=== PATIENT | female | born 1955 | race Caucasian/White ===

== ENCOUNTER 2023-06-11 13:26 | Outpatient (REF) | payer OTHER, SELFPAY ==
[2023-06-11 19:20] LABS: Anion Gap 9.4 mmol/L (3-11); BUN 13 mg/dL (7-18); CO2 25.6 mmol/L (21.0-32.0); CREATININE 1.1 mg/dL (0.55-1.02); Calcium 9.2 mg/dL (8.5-10.1); Chloride 106 mmol/L (98-107); Estimated GFR 54.73 (mL/min/1.73m2); Glucose 130 mg/dL (74-106); Potassium 3.9 mmol/L (3.5-5.1); Sodium 141 mmol/L (136-145)
== END 2023-06-11 13:27 | disposition home or self-care (01) ==
LOC: NCHCN 13:26
PROVIDERS: PCP Internal Medicine; Visit Provider Nurse Practitioner Family
DX: R53.1 Weakness (principal)
CPT/HCPCS: 80048

== ENCOUNTER 2023-07-23 15:48 | Outpatient (REF) | payer OTHER, SELFPAY ==
[2023-07-26 18:49] LABS: 2-OH-Ethyl-Flurazepam Negative ng/mL (Cutoff: 10); 7-NH-Clonazepam 169 ng/mL (Cutoff: 10); 7-NH-Flunitrazepam Negative ng/mL (Cutoff: 10); Alpha OH-Alprazolam 20 ng/mL (Cutoff: 10); Alpha-OH Midazolam Negative ng/mL (Cutoff: 10); Alpha-OH-Triazolam Negative ng/mL (Cutoff: 10); Alprazolam Negative ng/mL (Cutoff: 10); Benzodiazepines Interpretation Positive.; Chlordiazepoxide Negative ng/mL (Cutoff: 10); Clobazam Negative ng/mL (Cutoff: 10); Clonazepam Negative ng/mL (Cutoff: 10); Diazepam Negative ng/mL (Cutoff: 10); Flurazepam Negative ng/mL (Cutoff: 10); Lorazepam Negative ng/mL (Cutoff: 10); Midazolam Negative ng/mL (Cutoff: 10); N-Desmethylclobazam Negative ng/mL (Cutoff: 10); Prazepam Negative ng/mL (Cutoff: 10); Temazepam Negative ng/mL (Cutoff: 10); Triazolam Negative ng/mL (Cutoff: 10); Zolpidem Carboxylic acid 648 ng/mL (Cutoff: 10)
== END 2023-07-23 15:49 | disposition home or self-care (01) ==
LOC: NCHCN 15:48
PROVIDERS: PCP Internal Medicine; Visit Provider Nurse Practitioner Family
DX: F31.60 Bipolar disorder, current episode mixed, unspecified (principal); Z79.899 Other long term (current) drug therapy; Z51.81 Encounter for therapeutic drug level monitoring
CPT/HCPCS: 80346

== ENCOUNTER 2024-06-23 12:53 | Outpatient (REF) | payer OTHER, SELFPAY ==
[2024-06-27 17:37] LABS: 2-OH-Ethyl-Flurazepam Negative ng/mL (Cutoff: 10); 7-NH-Clonazepam Negative ng/mL (Cutoff: 10); 7-NH-Flunitrazepam Negative ng/mL (Cutoff: 10); Alpha OH-Alprazolam Negative ng/mL (Cutoff: 10); Alpha-OH Midazolam Negative ng/mL (Cutoff: 10); Alpha-OH-Triazolam Negative ng/mL (Cutoff: 10); Alprazolam Negative ng/mL (Cutoff: 10); Benzodiazepines Interpretation Negative.; Chlordiazepoxide Negative ng/mL (Cutoff: 10); Clobazam Negative ng/mL (Cutoff: 10); Clonazepam Negative ng/mL (Cutoff: 10); Diazepam Negative ng/mL (Cutoff: 10); Flurazepam Negative ng/mL (Cutoff: 10); Lorazepam Negative ng/mL (Cutoff: 10); Midazolam Negative ng/mL (Cutoff: 10); N-Desmethylclobazam Negative ng/mL (Cutoff: 10); Prazepam Negative ng/mL (Cutoff: 10); Temazepam Negative ng/mL (Cutoff: 10); Triazolam Negative ng/mL (Cutoff: 10); Zolpidem Carboxylic acid Negative ng/mL (Cutoff: 10)
== END 2024-06-23 12:54 | disposition home or self-care (01) ==
LOC: NCHCN 12:53
PROVIDERS: PCP Internal Medicine; Visit Provider Nurse Practitioner Family
DX: F41.8 Other specified anxiety disorders (principal); Z51.81 Encounter for therapeutic drug level monitoring; Z79.899 Other long term (current) drug therapy
CPT/HCPCS: 80346

== ENCOUNTER 2024-09-23 23:02 | Outpatient (REF) | payer OTHER, SELFPAY ==
[2024-09-23 19:33] LABS: Anion Gap 12.4 mmol/L (3-11); BUN 11 mg/dL (7-18); CO2 24.6 mmol/L (21.0-32.0); Calcium 9.3 mg/dL (8.5-10.1); Calculated LDL 184 mg/dL (<100); Chloride 106 mmol/L (98-107); Cholesterol 278 mg/dL (<200); Estimated GFR 60.98 (mL/min/1.73m2); Glucose 113 mg/dL (74-106); HDL Cholesterol 62 mg/dL (40-60); Potassium 4.3 mmol/L (3.5-5.1); Sodium 143 mmol/L (136-145); Triglyceride 162 mg/dL (<150)
[2024-09-23 20:00] LABS: Hemoglobin A1C 5.5 % (<5.7)
--- OUTSIDE RECORDS SUMMARY | 2024-09-23 23:03 | XMS_ITS | Continuity of Care Document ---
Author Name [facility] Organization [facility] Care Team Providers Care Rental Car Porter Name Role Phone [facility] Unavailable Unavailable Problems Combined list of problems from [facility] of Defense and [facility] facilities. It does not include entries that were removed or entered in error. Problem Status Onset Date Problem Type Date of Resolution Comments Source Anxiety * (ICD-9-CM 300.00/300.09) Active Condition [facility] Cerebrovascular Accident (ICD-9-CM 436.) Active Condition Feb 25, 2010 Entered By: CARRILLO GUTIERREZ Comment: Question of CVA, 1996 [facility] Depressive Disorder NOS * (ICD-9-CM 311./300.4) Active Condition [facility] Dizziness Active Condition [facility] Dysphagia, unspecified Active Condition [facility] Gastroesophageal Reflux Disorder Active Condition [facility] Headaches * (ICD-9-CM 784.0) Active Condition [facility] Meningioma * (ICD-9-CM 225.2/225.4) Active Condition Feb 25, 2010 Entered By: CARRILLO GUTIERREZ Comment: Frontal area, s/p resection 1996 [facility] Mixed Incontinence Active [facility] Obesity * (ICD-9-CM 278.00) Active Condition [facility] Tinnitus * (ICD-9-CM 388.30) Active Condition [facility] Tobacco Use Disorder * (ICD-9-CM 305.1) Active Condition [facility] Tubal Ligation Status Active Condition Feb 25, 2010 Entered By: CARRILLO GUTIERREZ Comment: After two pregnancies, 1984 [facility] Medications Combined list of outpatient medications from Department of Defense and Veterans [facility] facilities.Medications provided include 1) outpatient medications from the last 15 months, and 2) patient-reported medications. Medication Details Route Status Patient Instructions Prescription Expires Prescription Number Last Dispense Date Ordering Provider Order Date Order Qty Source ASPIRIN 81MG TAB,CHEWABL E CHEW ONE TABLET BY MOUTH EVERY DAY ORAL ACTIVE IZZY ROSE 2011 [facility] Allergies, Adverse Reactions, Alerts Combined list of allergies from Department of Defense and Veterans Affairs facilities. It does not include entries that were removed or entered in error. Substance Category Reaction Severity Reaction type Status Date Reported Comments Source DILANTIN Propensity to adverse reactions to drug (finding) Erythema, Eruption active 6 [facility] GABAPENTIN Propensity to adverse reactions to drug (finding) Feeling nervous active 6 [facility] METHYLPHENIDATE Propensity to adverse reactions to drug (finding) active 0 [facility] Immunizations Combined list of available immunizations from the Department of Defense and Veterans Affairs facilities. Immunization Series Date Given Administered By Site Reaction Lot Number CVX Code Drug Coat Cutter Status Comments Source ZOSTER LIVE 2012 121 complet ed Site: Left Deltoid [facility] INFLUENZA, UNSPECIFIED FORMULATION 2011 88 complet ed [facility] INFLUENZA, UNSPECIFIED FORMULATION 2010 88 complet ed [facility] PNEUMOCOCCAL, UNSPECIFIED FORMULATION 2010 109 complet ed Site: Left Deltoid [facility] TDAP 2010 115 complet ed Site: Right Deltoid [facility] INFLUENZA, UNSPECIFIED FORMULATION 2009 88 complet ed [facility] NOVEL INFLUENZA-H1N 1-09, ALL FORMULATIONS 2009 128 complet ed [employer] [facility] INFLUENZA, UNSPECIFIED FORMULATION 2008 88 complet ed [facility] INFLUENZA, UNSPECIFIED FORMULATION 2007 88 complet ed In [place], at a drugstore [facility] INFLUENZA, UNSPECIFIED FORMULATION 2006 88 complet ed [facility] INFLUENZA, UNSPECIFIED FORMULATION 2006 88 complet ed [facility] INFLUENZA, UNSPECIFIED FORMULATION 2005 88 complet ed [facility] TD(ADULT) UNSPECIFIED FORMULATION 2005 139 complet ed [employer] pasteur/l ot [id number] /IM [facility] Social History Combined list of available smoking, tobacco, and other social history from Department of Defense and Veterans Affairs facilities. Social History Type Response Date Comment Source Tobacco smoking status NHIS CURRENT SMOKER 06/20/2013 1 ppd [facility] History of tobacco use V1-PT DECLINES TOBACCO CESSATION MEDS 06/20/2013 [facility] History of tobacco use CURRENT SMOKER 05/27/2012 [facility] History of tobacco use V1-PT READY TO QUIT TOBACCO USE 05/09/2012 [facility] History of tobacco use V1-PT DECLINES TOBACCO CESSATION MEDS 04/17/2011 [facility] History of tobacco use CURRENT SMOKER 08/23/2010 1ppd [facility] History of tobacco use V1-PT DECLINES TOBACCO CESSATION MEDS 01/24/2010 [facility] History of tobacco use CURRENT SMOKER 08/10/2009 1 ppd [facility] History of tobacco use V1-PT READY TO QUIT TOBACCO USE 04/13/2009 [facility] History of tobacco use CURRENT SMOKER 08/11/2008 not interested in quitting--1 ppd currently [facility] History of tobacco use V1-PT READY TO QUIT TOBACCO USE 03/16/2008 [facility] History of tobacco use V1-PT DECLINES TOBACCO CESSATION MEDS 09/13/2007 [facility] History of tobacco use CURRENT SMOKER 07/08/2007 [facility] History of tobacco use V1-PT DECLINES TOBACCO CESSATION MEDS 03/25/2007 [facility] History of tobacco use V1-PT DECLINES TOBACCO CESSATION MEDS 01/18/2007 [facility] History of tobacco use QUIT TOBACCO USE IN PAST YEAR 06/08/2006 [facility] History of tobacco use CURRENT SMOKER 02/14/2006 1 ppd [facility]
== END 2024-09-23 23:03 | disposition home or self-care (01) ==
LOC: NCHCN 23:02
PROVIDERS: PCP Internal Medicine; Visit Provider Nurse Practitioner Family
DX: N18.31 Chronic kidney disease, stage 3a (principal)
CPT/HCPCS: 80048; 80061; 83036